=== PATIENT | male | born 1975 | race American Indian/Alaskan Native ===

== ENCOUNTER 2017-09-17 15:36 | Emergency (ER) | payer SELFPAY ==
[2017-09-17] MEDS ORDERED: ASPIRIN PO ONE (15:54)
[2017-09-17 16:14] LABS: Basophils # (Auto) 0.1 K/mm3 (0.0-0.1); Basophils % (Auto) 0.4 % (0.0-1.8); Eosinophils # (Auto) 0.1 K/mm3 (0.0-0.4); Eosinophils % (Auto) 0.6 % (0.0-4.3); Hematocrit 48.7 % (35.5-45.6); Hemoglobin 15.9 gm/dl (11.8-15.2); Lymphocytes # (Auto) 1.9 K/mm3 (1.2-5.4); Lymphocytes % (Auto) 12.3 % (13.4-35.0); Mean Corpuscular HGB Conc 33 % (32-34); Mean Corpuscular Hemoglobin 30 pg (28-32); Mean Corpuscular Volume 93 fl (84-94); Monocytes # (Auto) 1.1 K/mm3 (0.0-0.8); Monocytes % (Auto) 7.2 % (0.0-7.3); Platelet Count 216 K/mm3 (140-440); Red Blood Count 5.23 M/mm3 (3.65-5.03); Red Cell Distribution Width 14.6 % (13.2-15.2)
[2017-09-17 16:24] LABS: BUN/Creatinine Ratio 14; Blood Urea Nitrogen 14 mg/dL (9-20); Calcium 8.8 mg/dL (8.4-10.2); Hemolysis Index 17
[2017-09-17] MEDS ORDERED: NORCO 5/325 PO ONE (16:34)
--- NOTE | 2017-09-17 16:38 | Emergency Department Report ---
ED Chest Pain HPI - General Chief Complaint: Chest Pain Stated Complaint: CHEST DISCOMFORT Time Seen by Provider: 09/17/17 16:25 Source: patient Mode of arrival: Ambulatory Limitations: No Limitations - History of Present Illness Initial Comments: 42-year-old male with no significant past medical history presents to the hospital planning on chest pain that woke him up from sleep at 1 AM. Pain described as feeling like someone kicked him in his chest, moderate in intensity , and constant since onset. Pain is worse with movement, palpation, and deep inspiration. Patient complains of mild shortness of breath secondary to pain with deep inspiration. He denies nausea, vomiting, cough, fever, calf tenderness, or recent travel. Patient smokes Black and mild. Denies family history of CAD/heart attack - Related Data Previous Rx's Medication Instructions Recorded Last Taken Type Ibuprofen [Motrin] 800 mg PO Q8HR PRN #30 tablet 09/17/17 Unknown Rx traMADol [Ultram 50 MG tab] 50 mg PO Q6HR PRN #20 tablet 09/17/17 Unknown Rx Allergies Allergy/AdvReac Type Severity Reaction Status Date / Time Penicillins Allergy Seizure Verified 09/17/17 15:51 Heart Score - HEART Score History: Slightly suspicious EKG: Non-specific Age: < 45 Risk factors: 1-2 risk factors Troponin: < normal limit HEART Score: 2 ED Review of Systems ROS: Stated complaint: CHEST DISCOMFORT Other details as noted in HPI Comment: All other systems reviewed and negative ED Past Medical Hx - Past Medical History Previous Medical History?: No - Surgical History Past Surgical History?: No - Social History Smoking Status: Current Every Day Smoker Substance Use Type: Alcohol, Marijuana - Medications Home Medications: Home Medications Medication Instructions Recorded Confirmed Last Taken Type Ibuprofen [Motrin] 800 mg PO Q8HR PRN #30 tablet 09/17/17 Unknown Rx traMADol [Ultram 50 MG tab] 50 mg PO Q6HR PRN #20 tablet 09/17/17 Unknown Rx ED Physical Exam - General Limitations: No Limitations - Other Other exam information: General: No limitations, patient is alert in no acute distress Head exam: Atraumatic, normocephalic Eyes exam: Normal appearance ENT: Moist mucous membrane, normal oropharynx Neck exam: Normal inspection, full range of motion, no meningismus nontender Respiratory exam: Clear to auscultation bilateral, no wheezes, rales, crackles. Reproducible anterior lower sternal and medial rib tenderness with palpation. Cardiovascular: Normal rate and rhythm Abdomen: Soft, nondistended, and nontender, with normal bowel sounds, no rebound, or guarding Extremity: Full range of motion normal inspection no deformity, possible clubbing to finger. No calf tenderness or edema Back: Normal Inspection, full range of motion, no tenderness Neurologic: Alert, oriented x3, cranial nerves intact, no motor or sensory deficit Psychiatric: normal affect, normal mood Skin: Warm, dry, intact ED Course Vital Signs 09/17/17 09/17/17 09/17/17 15:51 15:58 16:00 Temperature 99.4 F Pulse Rate 79 79 Respiratory 18 14 20 Rate Blood Pressure 114/62 141/68 O2 Sat by Pulse 99 93 Oximetry 09/17/17 09/17/17 16:16 16:30 Temperature Pulse Rate 75 82 Respiratory 17 17 Rate Blood Pressure 141/68 O2 Sat by Pulse 97 96 Oximetry - Consultations Consultation #1: 09/17/17 17:27 Dr Geovanni Hung came to ED to evaluate pt. suggest diagnosis of pericarditis. Recommends echocardiogram if patient is willing to be admitted DONTE score - Donte Score Age > 65: (0) No Aspirin use within the Past 7 Days: (0) No 3 or more CAD Risk Factors: (0) No 2 or more Angina events in past 24 hrs: (0) No Known CAD with more than 50% Stenosis: (0) No Elevated Cardiac Markers: (0) No ST Deviation Greater than 0.5mm: (1) Yes DONTE Score: 1 ED Medical Decision Making - Lab Data Result diagrams: 09/17/17 15:55 09/17/17 15:55 Lab Results 09/17/17 09/17/17 Range/Units 15:55 15:55 WBC 15.8 H (4.5-11.0) K/mm3 RBC 5.23 H (3.65-5.03) M/mm3 Hgb 15.9 H (11.8-15.2) gm/dl Hct 48.7 H (35.5-45.6) % MCV 93 (84-94) fl MCH 30 (28-32) pg MCHC 33 (32-34) % RDW 14.6 (13.2-15.2) % Plt Count 216 (140-440) K/mm3 Lymph % (Auto) 12.3 L (13.4-35.0) % [facility] % (Auto) 7.2 (0.0-7.3) % Eos % (Auto) 0.6 (0.0-4.3) % Baso % (Auto) 0.4 (0.0-1.8) % Lymph # 1.9 (1.2-5.4) K/mm3 [facility] # 1.1 H (0.0-0.8) K/mm3 Eos # 0.1 (0.0-0.4) K/mm3 Baso # 0.1 (0.0-0.1) K/mm3 Seg Neutrophils % 79.5 H (40.0-70.0) % Seg Neutrophils # 12.5 H (1.8-7.7) K/mm3 Sodium 137 (137-145) mmol/L Potassium 4.2 (3.6-5.0) mmol/L Chloride 98.4 (98-107) mmol/L Carbon Dioxide 26 (22-30) mmol/L Anion Gap 17 mmol/L BUN 14 (9-20) mg/dL Creatinine 1.0 (0.8-1.5) mg/dL Estimated GFR > 60 ml/min BUN/Creatinine Ratio 14 % Glucose 100 (75-100) mg/dL Calcium 8.8 (8.4-10.2) mg/dL Troponin T < 0.010 (0.00-0.029) ng/mL - EKG Data -: EKG Interpreted by Me EKG shows normal: sinus rhythm (71), axis (qrs 73), QRS complexes (qrs d 95), ST -T waves (diffuse st elevation, lvh, peaked anteror t waves) Rate: normal - Radiology Data Radiology results: image reviewed (chest x-ray PA and lateral read by me: No acute) - Medical Decision Making Chest pain: Patient does have reproducible anterior lower chest wall tenderness but also has positional pain and a pericardial rub that was auscultated by dietitian therapeutic. This combined with EKG findings are suggestive of pericarditis. Patient treated with aspirin, [place], and Toradol in the ED. Will be admitted for echocardiogram. At 5:47 PM patient expresses that he does not want to be admitted to the hospital and will sign out against medical advice. NSAIDs, tramadol, and outpatient cardiac follow-up will be provided. Patient is welcome to return if he changes his mind or if symptoms worsen - Differential Diagnosis NE, unstable angina, PE, pericarditis Critical Care Time: No Critical care attestation.: If time is entered above; I have spent that time in minutes in the direct care of this critically ill patient, excluding procedure time. ED Disposition Clinical Impression: Chest wall pain, Abnormal EKG, Pericarditis Disposition: LEFT AGAINST MED ADVICE Is pt being admited?: No Condition: Stable Instructions: Acute Pericarditis (ED) Additional Instructions: You will benefit from admission for further heart workup. Your diagnoses is likely pericarditis or inflammation of the lining of the heart. Admission was recommended to rule out other causes and to perform echocardiogram to make sure there is no fluid around your heart or heart dysfunction. You have elected to sign out AGAINST MEDICAL ADVICE. You have been prescribed medication to help with inflammation and pain. Please return if symptoms worsen as indicated by your discharge instructions. You have also been provided cardiology outpatient follow-up as an option. Prescriptions: Ibuprofen [Motrin] 800 mg PO Q8HR PRN #30 tablet PRN Reason: Pain traMADol [Ultram 50 MG tab] 50 mg PO Q6HR PRN #20 tablet PRN Reason: Pain Referrals: PRIMARY CAREMD [Primary Care Provider] - 3-5 Days MARION HUNG MD [Staff Physician] - [facility] (dietitian therapeutic) [facility] [Provider Group] - 3-5 Days (Primary care clinic) Forms: AMA Form Time of Disposition: 17:48
[2017-09-17 16:41] VITALS: BP 141/68
[2017-09-17] MEDS ORDERED: TORADOL IV ONE (17:20)
--- NOTE | 2017-09-17 17:24 | XRay Report ---
FINAL REPORT EXAM: XR CHEST ROUTINE 2V HISTORY: chest pain sob TECHNIQUE: Two view chest PA and lateral PRIORS: None. FINDINGS: Cardiac and mediastinal contours are unremarkable. No focal pulmonary infiltrate is identified. No pleural fluid collection seen. Pulmonary vasculature is unremarkable. IMPRESSION: Negative two-view chest
== END 2017-09-17 18:15 | disposition left against medical advice (07) ==
LOC: ED 15:36
DX: I31.9 Disease of pericardium, unspecified (principal); R07.89 Other chest pain; R94.31 Abnormal electrocardiogram [ECG] [EKG]; F17.200 Nicotine dependence, unspecified, uncomplicated; F12.10 Cannabis abuse, uncomplicated; Z88.0 Allergy status to penicillin
CPT/HCPCS: 36415; 71046; 80048; 84484; 85025; 93005; 93010; 96374; 99284; J1885

== ENCOUNTER 2021-01-27 12:44 | Emergency (ER) | payer OTHER ==
[2021-01-27 13:25] VITALS: BP 125/75
== END 2021-01-27 16:55 | disposition home or self-care (01) ==
LOC: ED 12:44
DX: B34.9 Viral infection, unspecified (principal); F17.200 Nicotine dependence, unspecified, uncomplicated; F12.90 Cannabis use, unspecified, uncomplicated; Z79.899 Other long term (current) drug therapy; Z88.0 Allergy status to penicillin
CPT/HCPCS: 36415; 80053; 81001; 83690; 83735; 85025; 96372; 99283; J1885